=== PATIENT | female | born 1965 | race Caucasian/White ===

== ENCOUNTER 2018-05-02 16:43 | Emergency (ER) | payer OTHER ==
[~2018-05-02] VITALS: Ht 160 cm; Wt 84.4 kg
[2018-05-02 16:45] VITALS: BP 163/82
[2018-05-02] MEDS ORDERED: LIDOCAINE-MPF 2% ,5ML ONE ×2 (16:59→17:12)
[2018-05-02] MEDS ORDERED: DIPH,PERTUSS(ACELL),TET VAC/PF 0.5 ML IM-VACC ONE ×2 (17:00→18:10)
[2018-05-02] MEDS ORDERED: LIDOCAINE-MPF 1%, 5ML INFIL ONE (17:00)
== END 2018-05-02 19:21 | disposition home or self-care (01) ==
LOC: ED 19:15
DX: S61.214A Laceration without foreign body of right ring finger without damage to nail, initial encounter (principal); S91.114A Laceration without foreign body of right lesser toe(s) without damage to nail, initial encounter; F17.200 Nicotine dependence, unspecified, uncomplicated; W26.0XXA Contact with knife, initial encounter; Y93.89 Activity, other specified; Y92.009 Unspecified place in unspecified non-institutional (private) residence as the place of occurrence of the external cause; Y99.8 Other external cause status
CPT/HCPCS: 12041; 90471; 90715; 99284; 99285

== ENCOUNTER 2018-11-03 06:47 | Emergency (ER) | payer OTHER ==
[~2018-11-03] VITALS: Ht 160 cm; Wt 81.0 kg
[2018-11-03] MEDS ORDERED: SODIUM CHLORIDE FLUSH 10ML SYR IVF ONE (07:30)
--- NOTE | 2018-11-03 07:36 | NUR ---
EKG AND IV - US DELAY
[2018-11-03] MEDS ORDERED: MORPHINE SULFATE 4 MG/ML, 1ML ONE (07:44)
[2018-11-03] MEDS ORDERED: ONDANSETRON ODT 4 MG ONE (07:44)
[2018-11-03] MEDS: ONDANSETRON ODT 4 MG PO ONE (07:50)
[2018-11-03] MEDS: MORPHINE SULFATE 4 MG/ML, 1ML IVPush PRN (07:50)
[2018-11-03 08:03] LABS: BASOPHILS # (AUTO) 0.03 x10^3/uL (0-0.1); BASOPHILS % (AUTO) 0 % (0-1); EOSINOPHILS # (AUTO) 0.03 x10^3/uL (0-0.4); EOSINOPHILS % (AUTO) 0 % (1-7); LYMPHOCYTES # (AUTO) 1.64 x10^3/uL (1-3.4); LYMPHOCYTES % (AUTO) 14 % (22-44); MD NO; MEAN CORPUSCULAR HEMOGLOBIN 35.6 pg (27.0-34.8); MEAN CORPUSCULAR HGB CONC 34.6 g/dL (32.4-35.8); MONOCYTES # (AUTO) 0.75 x10^3/uL (0.2-0.8); MONOCYTES % (AUTO) 6 % (2-9); NEUTROPHILS # (AUTO) 9.25 x10^3/uL (1.8-6.8); NEUTROPHILS % (AUTO) 79 % (42-75); PLATELET COUNT 295 x10^3/uL (130-400); RED BLOOD COUNT 4.62 x10^6/uL (3.82-5.3); RED CELL DISTRIBUTION WIDTH 13.5 % (9.6-15.2)
[2018-11-03 08:12] LABS: ALBUMIN 4.3 g/dL (3.4-5.0); ANION GAP 12 mmol/L (5-15); CALCIUM 9.7 mg/dL (8.5-10.1); CHLORIDE 103 mmol/L (98-107)
[2018-11-03 08:18] LABS: ALANINE AMINOTRANSFERASE 172 U/L (12-78); ALKALINE PHOSPHATASE 107 U/L (45-117); BILIRUBIN,TOTAL 1.9 mg/dL (0.2-1.0); TOTAL PROTEIN 7.8 g/dL (6.4-8.2); TROPONIN I < 0.015 ng/mL (0.000-0.045)
[2018-11-03 09:28] VITALS: BP 121/72
== END 2018-11-03 10:02 | disposition home or self-care (01) ==
LOC: ED 08:40
DX: K80.20 Calculus of gallbladder without cholecystitis without obstruction (principal); K29.20 Alcoholic gastritis without bleeding; F10.10 Alcohol abuse, uncomplicated; R74.0 Nonspecific elevation of levels of transaminase and lactic acid dehydrogenase [LDH]; Y90.9 Presence of alcohol in blood, level not specified
CPT/HCPCS: 36415; 71045; 76700; 80053; 83690; 84484; 85025; 93005; 96374; 99284; Q0162

== ENCOUNTER 2018-11-19 06:49 | Day surgery (SDC) | payer OTHER ==
[~2018-11-19] VITALS: Ht 160 cm; Wt 78.7 kg
[~2018-11-19 06:49] MED LIST: NONE PER PT
[2018-11-19 07:26] VITALS: BP 137/72
[2018-11-19] MEDS ORDERED: INDOCYANINE GREEN 25 MG VIAL IV ONE (07:30)
[2018-11-19] MEDS: LACTATED RINGERS 1,000 ML IV SCH ×2 (07:40→07:52)
[2018-11-19] MEDS ORDERED: BUPIVACAINE/PF-EPI 0.5% 1:200K ONE (08:16)
[2018-11-19] MEDS ORDERED: FENTANYL PF 250 MCG/5ML ONE (08:37)
[2018-11-19] MEDS ORDERED: MIDAZOLAM 1 MG/ML, 2ML ONE (09:53)
[2018-11-19] MEDS ORDERED: ACETAMINOPHEN 650 MG/20.3 ML UDC ONE (10:17)
[2018-11-19] MEDS ORDERED: OXYcodone 5 MG/5 ML ORAL.SOL UDC ONE ×2 (10:18→10:51)
[2018-11-19] MEDS ORDERED: MEPERIDINE/PF 25MG/ML,1ML ONE (10:18)
[2018-11-19] MEDS: ACETAMINOPHEN 325 MG TABLET PO PRN ×2 (10:20→10:55)
[2018-11-19] MEDS: OXYcodone 5 MG/5 ML ORAL.SOL UDC PO PRN ×2 (10:20→10:55)
[2018-11-19] MEDS ORDERED: PROCHLORPERAZINE 5 MG/ML, 2ML IV PRN (10:30)
[2018-11-19] MEDS ORDERED: HALOPERIDOL 5 MG/ML IV PRN (10:30)
[2018-11-19] MEDS ORDERED: LABETALOL 5MG/ML, 20ML IV PRN (10:30)
[2018-11-19] MEDS ORDERED: METOPROLOL 1 MG/ML, 5ML IV PRN (10:30)
[2018-11-19] MEDS ORDERED: MEPERIDINE/PF 25MG/0.5ML IVPush PRN (10:30)
[2018-11-19] MEDS ORDERED: hydrALAzine 20 MG/ML, 1ML IV PRN (10:30)
[2018-11-19] MEDS ORDERED: DIPHENHYDRAMINE 50 MG/ML, 1ML IVPush PRN (10:30)
[2018-11-19] MEDS ORDERED: PROMETHAZINE 25 MG/ML, 1ML IV PRN (10:30)
[2018-11-19] MEDS ORDERED: HYDROmorphone 2 MG/ML, 1ML IVPush PRN (10:30)
[2018-11-19] MEDS ORDERED: FENTANYL PF 100 MCG/2ML ONE (10:51)
[2018-11-19] MEDS ORDERED: ACETAMINOPHEN 325 MG TABLET ONE (10:51)
[2018-11-19] MEDS: FENTANYL PF 100 MCG/2ML IV PRN ×2 (10:55→11:10)
[2018-11-19] MEDS ORDERED: SUCCINYLCHOLINE 20 MG/ML, 10ML ONE (11:31)
[2018-11-19] MEDS ORDERED: CEFAZOLIN 1,000 MG ONE (11:31)
[2018-11-19] MEDS ORDERED: ONDANSETRON 2MG/ML, 2ML ONE (11:31)
[2018-11-19] MEDS ORDERED: DEXAMETHASONE 4 MG/ML, 1ML ONE (11:31)
[2018-11-19] MEDS ORDERED: ROCURONIUM 10 MG/ML,10ML ONE (11:31)
[2018-11-19] MEDS ORDERED: PROPOFOL 10 MG/ML, 20ML ONE (11:31)
[2018-11-19] MEDS ORDERED: GLYCOPYRROLATE 0.2MG/1ML, 5ML ONE (11:31)
[2018-11-19] MEDS ORDERED: NEOSTIGMINE 1 MG/ML, 10ML ONE (11:31)
== END 2018-11-19 12:45 | disposition home or self-care (01) ==
LOC: OUT 06:49
PROVIDERS: ATTEND Surgery
DX: K80.10 Calculus of gallbladder with chronic cholecystitis without obstruction (principal); K76.0 Fatty (change of) liver, not elsewhere classified; F17.210 Nicotine dependence, cigarettes, uncomplicated; F10.21 Alcohol dependence, in remission; J44.9 Chronic obstructive pulmonary disease, unspecified; E66.9 Obesity, unspecified; Z68.30 Body mass index [BMI] 30.0-30.9, adult
CPT/HCPCS: 36415; 47379; 47562; 84703; 88304; 88307; 88313; J0330; J0690; J1100; J2175; J2250; J2405; J2704; J2710; J3010; J3490; J7120